=== PATIENT | female | born 1980 | race Caucasian/White ===

== ENCOUNTER 2021-01-28 15:46 | Emergency (ER) | payer OTHER, SELFPAY ==
[2021-01-28 16:05] VITALS: BP 135/81; PULSE 88; RESP 17; TEMP 36.9; O2SAT 99
--- NOTE | 2021-01-28 16:35 | ED.WOUNDLAC ---
HPI - Wound/Laceration General Chief Complaint: Wound/Laceration Stated Complaint: cut hand Time Seen by Provider: 01/28/21 16:35 Source: patient Mode of arrival: ambulatory Limitations: no limitations History of Present Illness HPI narrative: 40-year-old right-handed woman comes in today complaining of laceration of her left hand that occurred this afternoon. Patient states that she was using a knife at work when it happened. He denies any numbness, or decreased range of motion. She does not recall her last tetanus shot. Onset (ago): hour(s) (1) Extremity Location: Left: hand Place: work Patient tetanus UTD: No Context: accidental Associated symptoms: pain Treatments prior to arrival: bandage Related Data Allergies Allergy/AdvReac Type Severity Reaction Status Date / Time No Known Allergies Allergy Verified 01/28/21 16:11 Review of Systems Constitutional: Constitutional: Denies chills and Denies fever(s) Musculoskeletal: Musculoskeletal: Denies arthralgias and Denies joint swelling Integumentary/Breasts: Skin/Breast: Reports as per HPI, Denies pruritus, Denies erythema and Denies rash Neurologic: Denies vertigo, Denies dizziness and Denies syncope Hematologic/Lymphatic: Hematologic/Lymphatic: Denies easy bleeding and Denies easy bruising Allergic/Immunologic: Allergic/Immunologic: Denies lip swelling and Denies throat swelling [facility] Social History Social History (Updated 01/28/21 @ 16:46 by Keaton Garcia MD) Smoking status: Current every day smoker Living arrangements: with family Exam Const: General: healthy appearing and alert Orientation/consciousness: patient oriented x3 Limitations: no limitations Other: mild acute distress. Eyes: Conjunctivae: conjunctivae normal Pupils: Equal, round and reactive pupils present EOM: EOMs intact bilaterally Resp: Effort & Inspection: normal respiratory effort and not labored Auscultation: clear to auscultation bilaterally, no rales, no rhonchi and no wheezes Cardio: Rate: regular rate Rhythm: regular rhythm Heart sounds: no murmurs Skin: General skin exam: normal color, no jaundice and no pallor Rashes: no rashes Other: 1.5 cm laceration on the left palm at the base of the index finger. Normal finger flexion to challenge. Distal neurovascular exam is intact. Neuro: General: patient oriented x3, moves all extremities, no focal motor deficits and CN's II-XI intact bilaterally Speech: normal speech Gait exam (Neuro): Normal gait present Extrem: General: normal to inspection and no clubbing, cyanosis or edema Psych: Appearance: grossly normal and well kempt Mental Status: mental status grossly normal Affect: normal affect Attitude: cooperative Thought content: Yes Normal thought content present Course Vital Signs Vital signs: Vital Signs Temperature 36.9 C 01/28/21 16:05 Pulse Rate 88 01/28/21 16:05 Respiratory Rate 17 01/28/21 16:05 Blood Pressure 135/81 01/28/21 16:05 Pulse Oximetry 99 01/28/21 16:05 Temperature 36.9 C 01/28/21 16:05 Pulse Rate 88 01/28/21 16:05 Respiratory Rate 17 01/28/21 16:05 Blood Pressure 135/81 01/28/21 16:05 Pulse Oximetry 99 01/28/21 16:05 Procedures Laceration Laceration 1: Date: 01/28/21 Time: 16:48 Site: hand Side (If applicable): left Size (cm): 1.5 Description: linear Depth: simple, single layer Local Anesthetic: lidocaine 1% Amount of anesthesia used (mL): 4 Pre-repair: irrigated extensively ====== Skin Level ====== Skin layer closed with: nylon Size (cm): 4-0 Number of sutures: 4 Technique: simple, interrupted ====== Subcutaneous Layer ====== ====== Muscle Layer ====== ====== Tendon Layer ====== Discharge Plan Discharge Clinical Impression: Laceration Patient Disposition: Home, Self-Care Condition: Stable Instructions: Care
[2021-01-28] MEDS: TETANUS,DIPHTHERIA,AC PERTUSSIS ADULT 0.5 ML (ADACEL) IM (16:36)
[2021-01-28] MEDS: HYDROcodone/acetaminophen (*CRX) 5-325 MG TABLET 1 TAB PO (16:38)
[2021-01-28 17:21] VITALS: RESP 17
== END 2021-01-28 17:20 | disposition home or self-care (01) ==
PROVIDERS: Emergency Provider Emergency Medicine
DX: S61.412A Laceration without foreign body of left hand, initial encounter (principal); W26.0XXA Contact with knife, initial encounter
CPT/HCPCS: 12001; 90471; 90715; 99283; A9270

== ENCOUNTER 2021-02-05 21:48 | Emergency (ER) | payer OTHER, SELFPAY ==
[2021-02-05 22:25] VITALS: BP 115/56; PULSE 113; RESP 20; TEMP 37.2; O2SAT 99
[2021-02-05] MEDS: CLINDAMYCIN HCL 150 MG CAP 450 MG PO (22:52)
[2021-02-05] MEDS: LIDOCAINE HCL 1% LOCAL INJ 20 ML VIAL 5 ML INFILTRATE (22:53)
--- NOTE | 2021-02-05 23:02 | ED.GENADULT ---
HPI - General Adult General Chief complaint: Wound/Laceration Stated complaint: cut hand at work Source: patient Mode of arrival: ambulatory Limitations: no limitations History of Present Illness HPI narrative: Naomi is a previously healthy woman that presented to the ER with increased pain, warmth, swelling and drainage from a laceration site on her left hand for the last 2 days. She denies any fevers, chills, numbness, or weakness in the hand. Related Data Allergies Allergy/AdvReac Type Severity Reaction Status Date / Time No Known Allergies Allergy Verified 01/28/21 16:11 Review of Systems Constitutional: Constitutional: Reports no additional constitutional complaints Eyes: Eyes: Reports no additional eye complaints ENT: Reports system reviewed and no additional complaints, except as documented Cardiovascular: Cardiovascular: Reports no additional cardiovascular complaints Respiratory: Respiratory: Reports no additional respiratory complaints Gastrointestinal: Gastrointestinal: Reports no additional gastrointestinal complaints Genitourinary: Genitourinary: Reports no additional female genitourinary complaints Musculoskeletal: Musculoskeletal: Reports no additional musculoskeletal complaints Integumentary/Breasts: Skin/Breast: Reports as per HPI Neurologic: Reports system reviewed and no additional complaints, except as documented Psychiatric: Psychiatric: Reports no additional psychiatric complaints Endocrine: Endocrine: Reports no additional endocrine complaints Hematologic/Lymphatic: Hematologic/Lymphatic: Reports no additional hematologic/lymphatic complaints Allergic/Immunologic: Allergic/Immunologic: Reports no additional allergic/immunologic complaints COUNT INCLUDES THE [facility] Social History Social History Smoking status: Current every day smoker Exam Const: General: no acute distress and alert Orientation/consciousness: patient oriented x3 Limitations: No altered mental status HENMT: Head: normal to inspection Other: atraumatic Eyes: Conjunctivae: conjunctivae normal Pupils: Equal, round and reactive pupils present Neck: Neck: normal visual inspection Chest: Chest palpation & inspection: normal inspection of the chest Resp: Effort & Inspection: normal respiratory effort and not labored Cardio: Rate: regular rate Skin: Other: Left hand has a laceration on the left palm at the base of the finger with sutures in place. The laceration was raised with an overlying area of erythema and purulent drainage with fluctuance. It was very TTP. Neuro: General: patient oriented x3, moves all extremities, no meningeal signs and CN's II-XI intact bilaterally Other: Distal sensation intact on the left hand and fingers. Extrem: General: normal to inspection Psych: Appearance: grossly normal Mental Status: mental status grossly normal Affect: normal affect Thought content: Yes Normal thought content present Course Course Emergency Course: I&D performed as below. She was given a dose of clindamycin and discharged with a script for wound infection with purulent cellulitis. Vital Signs Vital signs: Vital Signs Temperature 98.9 F 02/05/21 22:25 Pulse Rate 113 H 02/05/21 22:25 Respiratory Rate 20 02/05/21 22:25 Blood Pressure 115/56 L 02/05/21 22:25 Pulse Oximetry 99 02/05/21 22:25 Temperature 98.9 F 02/05/21 23:10 Pulse Rate 86 02/05/21 23:10 Respiratory Rate 20 02/05/21 23:10 Blood Pressure 115/56 L 02/05/21 23:10 Pulse Oximetry 99 02/05/21 23:10 Procedures Abscess I/D hand: Date of Incision: 02/05/21 Time of Incision: 22:31 Side (if applicable): left Local Anesthetic: lidocaine 1% Amount of anesthesia used (mL): 2 Technique: needle aspiration Amount of fluid expressed (mL): 2 Irrigation: No Packing used?: none I&D Results: Pus and Blood Com
[2021-02-05 23:10] VITALS: BP 115/56; PULSE 86; RESP 20; TEMP 37.2; O2SAT 99
--- NOTE | 2021-02-05 23:18 | PC.NURSE ---
wound cleansed, gauze wrap applied after procedure with dr chayo barnhart.
== END 2021-02-05 23:15 | disposition home or self-care (01) ==
PROVIDERS: Emergency Provider Family Medicine; PCP Family Medicine
DX: S61.412A Laceration without foreign body of left hand, initial encounter (principal)
CPT/HCPCS: 10160; 99283; A9270

== ENCOUNTER 2021-08-05 16:32 | Emergency (ER) | payer OTHER, SELFPAY ==
--- NOTE | 2021-08-05 16:45 | ED.LOWEXIN ---
HPI - Extremity Injury (Lower) General Chief Complaint: Unspecified Stated Complaint: Foot pain, both Time Seen by Provider: 08/05/21 16:45 Source: patient and old records reviewed Mode of arrival: ambulatory Limitations: no limitations History of Present Illness HPI Narrative: 41-year-old female presents with bilateral foot pain for the past 2 years. 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 No history of trauma. No leg swelling. MD complaint: other ( No history of trauma) Onset (ago): year(s) ( Pain for the past 2 years.) Severity scale (1-10): 6 Relieving factors: nothing Exacerbating factors: nothing Other symptoms: none Related Data Home Medications Medication Instructions Recorded Confirmed No Home Medications 08/05/21 08/05/21 Allergies Allergy/AdvReac Type Severity Reaction Status Date / Time No Known Allergies Allergy Verified 08/05/21 17:26 Review of Systems Review of Systems: All systems reviewed & are unremarkable except as noted in HPI and below PMFSH Social History Social History Smoking status: Current every day smoker Exam Const: General: cooperative, healthy appearing and comfortable Nutritional Appearance: thin Orientation/consciousness: oriented to person, oriented to place and oriented to time Limitations: no limitations HENMT: Head: normal to inspection Ears: hearing grossly normal bilaterally General nose exam: Normal external nose present Face and sinus: normal facial exam Mouth: Yes Normal oral and palatal mucosa present Teeth and gingiva: dentition normal Throat: posterior oropharynx normal Eyes: General: appearance normal, both eyes and all related structures Neck: Neck: normal visual inspection and full ROM Chest: Chest palpation & inspection: normal inspection of the chest Resp: Effort & Inspection: normal respiratory effort and able to speak in complete sentences Auscultation: clear to auscultation bilaterally Cardio: Jugular venous distension: no JVD Rate: regular rate Rhythm: regular rhythm Heart sounds: S1 normal heart sound present and S2 normal heart sound present GI: Inspection: normal to inspection GI Palp: Yes Other GI palpation findings present ( no tenderness/rigidity /rebound) : General: Yes no CVA tenderness Back/Spine/Pelvis: Back: no CVA tenderness Thoracic/Lumbar Spine: thoracic and lumbar spine normal to inspection and straight leg raise negative bilaterally Skin: General skin exam: normal color and no rashes or lesions noted Neuro: General: oriented to person, oriented to place, oriented to time and patient oriented x3 Extrem: General: normal to inspection, full ROM and capillary refill normal Right lower extremity: normal to inspection and full ROM Left lower extremity: normal to inspection and full ROM Other: no foot tenderness. Bilateral foot pulses are full and bounding. Prominent veins noted over both legs. Psych: Appearance: grossly normal and well kempt Course Course Emergency Course: Chronic foot pain is unchanged. MDM - Extremity Injury (Lower) MDM Narrative Medical decision making narrative: Foot pain Differential Diagnosis Differential diagnosis: Likely other ( foot pain- fracture/dislocation / arterial insufficiency/ venous incompetence) Discharge Plan Discharge Clinical Impression: Foot pain Patient Disposition: Home, Self-Care Condition: Stable Instructions: Antibiotic Form, Venous Insufficiency (DC), Metatarsalgia (DC) Additional Instructions: follow-up with speech assistant use Filippo hoses when standing for prolonged periods of time Prescriptions: No Action No Home Medications RF: 0 Follow-up/Referrals: UNKNOWN,DOCTOR [Primary Care Provider] - Time of Disposition: 17:52
[2021-08-05 17:23] VITALS: BP 113/78; PULSE 96; RESP 20; TEMP 36.7; O2SAT 99
[2021-08-05 17:54] VITALS: PULSE 92; RESP 20; O2SAT 99
== END 2021-08-05 17:56 | disposition home or self-care (01) ==
PROVIDERS: Emergency Provider Internal Medicine Critical Care Medicine
DX: M79.673 Pain in unspecified foot (principal)
CPT/HCPCS: 99282

== ENCOUNTER 2022-07-13 23:37 | Emergency (ER) | payer OTHER, SELFPAY ==
--- NOTE | ~2022-07-13 | XR_ITS ---
XR ankle RT 2V DATE: 07/13/2022 23:59 INDICATION: Twisted ankle. Lateral pain. TECHNIQUE: AP and lateral views COMPARISON: None FINDINGS: There is mild lateral soft tissue swelling. No fracture or dislocation of the ankle or disr uption of the ankle mortise is detected. IMPRESSION: Mild lateral soft tissue swelling Reviewed, dictated and finalized at location A.
--- NOTE | ~2022-07-13 | XR_ITS ---
XR foot RT 2V DATE: 07/13/2022 23:59 INDICATION: Ankle injury. Lateral ankle and foot pain TECHNIQUE: AP and lateral views COMPARISON: None FINDINGS: No fracture or dislocation, periosteal reaction or bone destruction. Joint spaces are consi dered. No erosive change. IMPRESSION: Negative Reviewed, dictated and finalized at location A. IMPRESSION: Negative
[2022-07-13 23:40] VITALS: BP 130/100; PULSE 102; RESP 20; TEMP 37; O2SAT 100
[2022-07-13] MEDS: KETOROLAC (*BKC) 60 MG/2 ML VIAL IM (23:52)
--- NOTE | 2022-07-14 00:08 | ED.LOWEXIN ---
HPI - Extremity Injury (Lower) General Chief Complaint: Extremity Injury, Lower Stated Complaint: R Foot Injury Time Seen by Provider: 07/13/22 23:46 Source: patient Mode of arrival: ambulatory Limitations: no limitations History of Present Illness HPI Narrative: this is 42-year-old female that presents with right foot and ankle pain with swelling after she got it smashed in a car door causing pain and swelling in her right foot and ankle this occurred yesterday, patient went to work and was working on her foot and ankle all day long and then walking around all day long causing exacerbation of her already painful foot and ankle. Has a strong pedal pulse on the right with no numbness or tingling. complaint: ankle injury and foot injury Onset (ago): day(s) Injury: Right: ankle ( tender and painful) and foot Type of Injury: blunt Place: home Severity: severe Severity scale (1-10): 10 Relieving factors: nothing and immobilization Exacerbating factors: weight bearing, movement and palpation Context: direct blow Associated symptoms: swelling Other symptoms: none Related Data Allergies Allergy/AdvReac Type Severity Reaction Status Date / Time No Known Allergies Allergy Verified 08/05/21 17:26 Review of Systems Review of Systems: All systems reviewed & are unremarkable except as noted in HPI and below PMFSH Past Medical History Medical History (Updated 07/14/22 @ 00:12 by Dayron Almanza MD) Patient denies medical problems Social History Social History Smoking status: Current every day smoker Exam Const: General: healthy appearing Nutritional Appearance: well nourished Orientation/consciousness: patient oriented x3 Limitations: no limitations HENMT: Head: normal to inspection Face and sinus: normal facial exam Mouth: Yes Normal oral and palatal mucosa present Teeth and gingiva: dentition normal Eyes: Conjunctivae: conjunctivae normal Pupils: Equal, round and reactive pupils present EOM: EOMs intact bilaterally Neck: Neck: normal visual inspection Chest: Chest palpation & inspection: normal inspection of the chest Resp: Effort & Inspection: normal respiratory effort Auscultation: clear to auscultation bilaterally Cardio: Rate: regular rate Rhythm: regular rhythm Skin: General skin exam: normal color Rashes: no rashes Wounds: no wounds Neuro: General: patient oriented x3 Cranial nerves: Yes Nystagmus not present Speech: normal speech Extrem: Other: Topete and painful right foot and ankle Psych: Mental Status: mental status grossly normal Affect: normal affect Attitude: cooperative Course Course Emergency Course: patient received IM Toradol 60mg x-rays reviewed with patient and Jai wrap applied. Vital Signs Vital signs: Vital Signs Temperature 37.0 C 07/13/22 23:40 Pulse Rate 102 H 07/13/22 23:40 Respiratory Rate 20 07/13/22 23:40 Blood Pressure 130/100 H 07/13/22 23:40 Pulse Oximetry 100 07/13/22 23:40 Oxygen Delivery Room Air 07/13/22 23:40 Temperature 37.0 C 07/13/22 23:40 Pulse Rate 102 H 07/13/22 23:40 Respiratory Rate 20 07/13/22 23:40 Blood Pressure 130/100 H 07/13/22 23:40 Pulse Oximetry 100 07/13/22 23:40 Oxygen Delivery Room Air 07/13/22 23:40 Critical Care Time Critical Care Time Critical Care Time: No Discharge Plan Discharge Clinical Impression: Ankle sprain and strain Patient Disposition: Home, Self-Care Condition: Stable Instructions: Antibiotic Form, Ankle Sprain (ED) Additional Instructions: take medicine as prescribed and follow-up with primary care physician if symptoms persist or worsen. Prescriptions: New tramadol [Ultram] 50 mg tablet 50 mg PO Q6H PRN (Reason: pain) Qty: 20 0RF Follow-up/Referrals: UNKNOWN,DOCTOR [Primary Care Provider] - Time of Disposition: 00:21
[2022-07-14] MEDS: HYDROcodone/acetaminophen (*CRX) 5-325 MG TABLET 1 TAB PO (00:21)
[2022-07-14 00:25] VITALS: BP 133/85; PULSE 91; RESP 20; TEMP 36.9; O2SAT 99
== END 2022-07-14 00:43 | disposition home or self-care (01) ==
PROVIDERS: Emergency Provider Emergency Medicine
DX: S93.401A Sprain of unspecified ligament of right ankle, initial encounter (principal); W22.8XXA Striking against or struck by other objects, initial encounter
CPT/HCPCS: 73600; 73620; 96372; 99283; A9270; J1885

== ENCOUNTER 2025-02-23 05:50 | Emergency (ER) | payer OTHER, SELFPAY ==
[2025-02-23 05:51] VITALS: BP 126/70; PULSE 93; RESP 14; TEMP 37.1; O2SAT 96
--- OUTSIDE RECORDS SUMMARY | 2025-02-23 05:53 | XMS_ITS | Patient Health Record ---
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 Job Name Role Phone [employer] Primary Care Provider [phone] Reason For Referral No Information Medications Medication SIG (Take, Route, Fr equency, Duration) Notes Start Date End Date Status Nicotine 21 MG/24HR 1 patch to skin Paula sdermal Once a day Active Tylenol 500 mg 1 tab Oral ev agustin 6 hours as needed Active Aleve 220 MG 1-2 tablet with food or milk as needed Orally every 12 hrs Activ e Social History Tobacco Use: Social History Observation Description Date Details (start date - stop date) Current Smoker NA - NA Dont use, Tobacco Use/Smoking Question Answer Notes Are you a current smoker How often do you smoke cigarettes? every day How many cigarettes a day do you smoke? 21-30 How soon after you wake up do you smoke your fir st cigarette? within 5 minutes Problems Problem Type SNOMED Code ICD Code Onset Dates Problem Status W/U Status Risk Notes Problem [id number] Peripheral polyneuropathy (G62.9) Active confirmed Problem [id number] Diminished visio n (H54.7) Active confirmed Plan Of Treatment No Information Insurance Providers Payer Name Payer Address Payer Phone Subscriber Number Group Number Insured Name Patient Relationship to Insured Coverage Start Date Coverage End Date MEDICAID [address] [place] [phone] [id number] Naomi Richey Self - patient is the insured 7 Medical (General) History Medical History History ICD Code Substance Use Disorder Migraine Headache Depression KIMBERLY Carpal Tunnel Syndrome, bilat Surgical History Surgery Date(Month/Year) breast mass, benign
--- NOTE | 2025-02-23 06:12 | ED_ITS ---
HPI - Ear Problem General Chief complaint: Ear Stated complaint: R Ear Pain Source: patient and family Mode of arrival: ambulatory Limitations: no limitations History of Present Illness HPI Narrative: this is a 44-year-old female who presents with a right outer ear inflammation redness with currently no drainage no fever chills does have a tender right lymph node enlargement and tenderness with no sore throat no erythema no sinus congestion no shortness of breath no nausea vomiting. MD Complaint: ear pain Location: right ear Duration: constant Severity: moderate Relieving factors: nothing Exacerbating factors: chewing, position of head and palpation Discharge from ear: Reports no Related Data Allergies Allergy/AdvReac Type Severity Reaction Status Date / Time No Known Allergies Allergy Verified 02/23/25 06:12 Review of Systems Review of Systems: All systems reviewed & are unremarkable except as noted in HPI and below PMFSH Past Medical History Medical History Patient denies medical problems Social History Social History Smoking status: Current every day smoker Living arrangements: with family Exam Const: General: healthy appearing and no acute distress Nutritional Appearance: well nourished Orientation/consciousness: patient oriented x3 Limitations: no limitations HENMT: Other: External ear on the right erythematous shoe lid and tender to touch Eyes: Conjunctivae: conjunctivae normal Pupils: Equal, round and reactive pupils present Neck: Neck: normal visual inspection and lymphadenopathy Chest: Chest palpation & inspection: normal inspection of the chest Resp: Effort & Inspection: normal respiratory effort Cardio: Rate: regular rate Rhythm: regular rhythm GI: GI Palp: Yes Soft to palpation Auscultation: normal bowel sounds Skin: Other: outer ear redness of her right with some swelling Course Course Emergency Course: outer ear infection 1 send medication to patient's local pharmacy including antibiotics and anti inflammatory lung with antibiotic ear drops. Vital Signs Vital signs: Vital Signs Temperature 37.1 C 02/23/25 05:51 Pulse Rate 93 02/23/25 05:51 Respiratory Rate 14 02/23/25 05:51 Blood Pressure 126/70 02/23/25 05:51 Pulse Oximetry 96 02/23/25 05:51 Oxygen Delivery Room Air 02/23/25 05:51 Temperature 37.1 C 02/23/25 05:51 Pulse Rate 93 02/23/25 05:51 Respiratory Rate 14 02/23/25 05:51 Blood Pressure 126/70 02/23/25 05:51 Pulse Oximetry 96 02/23/25 05:51 Oxygen Delivery Room Air 02/23/25 05:51 Medical Decision Making Vital Signs Vital Signs: Vital Signs Temperature 37.1 C 02/23/25 05:51 Pulse Rate 93 02/23/25 05:51 Respiratory Rate 14 02/23/25 05:51 Blood Pressure 126/70 02/23/25 05:51 Pulse Oximetry 96 02/23/25 05:51 Oxygen Delivery Room Air 02/23/25 05:51 Temperature 37.1 C 02/23/25 05:51 Pulse Rate 93 02/23/25 05:51 Respiratory Rate 14 02/23/25 05:51 Blood Pressure 126/70 02/23/25 05:51 Pulse Oximetry 96 02/23/25 05:51 Oxygen Delivery Room Air 02/23/25 05:51 Critical Care Time Critical Care Time Critical Care Time: No Discharge Plan Discharge Clinical Impression: Otitis externa Qualifiers: Otitis externa type: unspecified type Chronicity: acute Laterality: right Qualified Code(s): H60.501 - Unspecified acute noninfective otitis externa, right ear Patient Disposition: Home Condition: Stable Instructions: Antibiotic Form, Swimmer's Ear (ED) Additional Instructions: advised patient to take medication as prescribed and to follow up with primary care physician if symptoms persist or worsen. Patient Language: Macedonian Prescriptions: New amoxicillin-pot clavulanate [Augmentin] 500-125 mg tablet 1 tablet PO TID Qty: 30 0RF Cortisporin-TC 3.3-3-10-0.5 mg/mL drops,suspension 5 drp RIGHT EAR TID 7 Days Qty: 10 0RF naproxen 500 mg tablet 500 mg PO BID Qty: 14 0RF No Action tramadol [Ultram] 50 mg tablet 50 mg PO Q6H PRN (Reason: pain) Qty: 20 0RF Follow-up/Referrals: Yunior Fletcher DO [Primary Care Provider] - Stand Alone Forms: Work/School Release IP Time of Disposition: 06:18
== END 2025-02-23 06:22 | disposition home or self-care (01) ==
PROVIDERS: Emergency Provider Emergency Medicine; PCP Family Medicine
DX: H60.501 Unspecified acute noninfective otitis externa, right ear (principal); F17.200 Nicotine dependence, unspecified, uncomplicated
CPT/HCPCS: 99283